=== PATIENT | female | born 1950 | race Caucasian/White ===

== ENCOUNTER 2017-03-29 14:40 | Outpatient (CLI) | payer MEDICARE, BC | END 2017-03-29 14:41 | disposition home or self-care (01) | LOC: BICRAD 14:40 | PROVIDERS: ATTEND Internal Medicine | DX: M25.571 Pain in right ankle and joints of right foot (principal); M19.071 Primary osteoarthritis, right ankle and foot ==

== ENCOUNTER 2017-04-05 16:40 | Observation (INO) | payer MEDICARE, BC ==
[~2017-04-05 16:40] MED LIST: Iopamidol 370 76% 50 ML VIAL FS ONE
[2017-04-05 17:08] LABS: #Eosinphils 0.1 thou/uL (0.0-0.7); #Lymphocytes 0.8 thou/uL (1.20-3.40); #Monocytes 0.4 thou/uL (0.11-0.59); #Neutrophils 4.6 thou/uL (1.40-6.50); %Eosinophils 1.5 % (0.0-10.0); %Lymphocytes 14.1 % (21.0-51.0); %Monocytes 7.3 % (0.0-10.0); %Neutrophils 77.1 % (42.0-75.0); Hemoglobin 13.9 g/dL (12.0-16.0); Mean Corpuscular HGB CONC 31.4 g/dL (32.0-36.0); Mean Corpuscular Hemoglobin 31.5 pg (27.0-31.0); Mean Platelet Volume 7.6 fL (7.4-10.4); Platelet Count 270 thou/uL (130-400); RBC Distribution Width 11.3 % (11.5-14.5); White Blood Cell (WBC) Count 5.9 thou/uL (4.8-10.8)
[2017-04-05 17:29] LABS: Troponin I 0.013 ng/mL (< 0.028)
[2017-04-05 17:39] LABS: ALT (SGPT) 29 U/L (8-55); AST (SGOT) 25 U/L (5-34); Albumin 4.2 g/dL (3.4-4.8); Alkaline Phosphatase 83 U/L (40-150); Anion Gap 14 mmol/L (10-20); BUN (Urea Nitrogen) 10 mg/dL (9.8-20.1); Bilirubin, Total 0.6 mg/dL (0.2-1.2); CK (CPK) 57 U/L (29-168); Calc. Creatinine Clearance 0 mL/min (70-130); Calcium 9.3 mg/dL (7.8-10.44); Carbon Dioxide 23 mmol/L (23-31); Chloride 103 mmol/L (98-107); Estimated GFR-MDRD 77; Globulin 2.9 g/dL (2.4-3.5); Glucose 132 mg/dL (80-115); Lipase 14 U/L (8-78); Potassium 3.7 mmol/L (3.5-5.1); Protein, Total 7.1 g/dL (6.0-8.3); Sodium 136 mmol/L (136-145)
--- NOTE | 2017-04-05 18:28 | RAD ---
PORTABLE AP CHEST X-RAY 04/05/17 HISTORY: Dyspnea. Persistent chest pain. COMPARISON: None available. FINDINGS: The cardiac silhouette and pulmonary vasculature are within normal limits. Mild increased linear dens ities are seen at the left lung base probably related to atelectasis. The lungs are otherwise clear. Degenerative changes are noted in the spine. IMPRESSION: Linear densities left lung base most likely related to atelectasis. However, if the patient has clini wendy signs or symptoms of pneumonia/pneumonitis, a followup chest x-ray is recommended. POS: [facility]
[2017-04-05] MEDS ORDERED: Nitroglycerin 0.4 MG TAB (25 Tab Bottle) ONE (20:17)
[2017-04-05] MEDS ORDERED: Acetaminophen 500 MG TAB ONE (20:26)
--- NOTE | 2017-04-05 20:46 | CT ---
CT ANGIOGRAM THORAX WITH IV CONTRAST AND 3D RECONSTRUCTIONS 04/05/17 HISTORY: Dyspnea and chest pain. Patient states left sided chest pain fills like a boulder on chest. Dry coug h. COMPARISON: None available. FINDINGS: No filling defects are seen in the pulmonary arteries to suggest a pulmonary embolus. The thoracic ao rta is normal in caliber without evidence of an aortic dissection. Minimal vascular calcifications ar e seen in the thoracic aorta. There is a punctate nodular density in the region of the lingula which probably represents a tiny calcified granuloma. No additional discrete pulmonary nodule or mass is se en in the lungs bilaterally. There is dependent atelectasis bilaterally. No pleural effusion is seen. Mild degenerative changes are seen in the spine. There are a few subcentimeter hypodense lesion within each lobe of the liver which are stable from pr ior CT abdomen in 2013. A larger hypodense lesion within the right hepatic lobe is present, but this is smaller in size compared to the study in 2013. The findings are probably related to hepatic cysts. There are postsurgical changes likely related to prior hernia repair/fundoplication procedure. There is no lymphadenopathy seen. IMPRESSION: 1. No CT evidence of a pulmonary embolus. 2. Incidental findings within the upper abdomen as described above which are unchanged from the study in 2013. POS: [facility]
[2017-04-05 21:27] LABS: Troponin I Less than 0.010 ng/mL (< 0.028)
[2017-04-05 22:27] VITALS: BMI 30.9
[2017-04-05 23:28] LABS: Bilirubin Negative (Negative); Blood, Urine Negative (Negative); Clarity CLEAR (Clear); Glucose, Urine (Dipstick) Negative (Negative); Leukocyte Negative (Negative); Nitrite Negative (Negative); Protein, Urine (Dipstick) Negative (Neg-Trace); Urobilinogen 0.2 mg/dL (0.2-1.0); pH, Urine 6.5 (5.0-9.0)
[2017-04-05 23:30] LABS: Bacteria/HPF Rare-Few HPF (None Seen); Hyaline Casts/LPF 0-3 HYALINE CAST LPF (0-3 Hyaline); RBC/HPF 0-3 HPF (0-3); Specific Gravity, Urine 1.059 (1.002-1.036); Squamous Epithelial 0-3 HPF (0-3); WBC/HPF 0-3 HPF (0-3)
[2017-04-06 00:18] LABS: Troponin I Less than 0.010 ng/mL (< 0.028)
[2017-04-06] MEDS ORDERED: hydrALAZINE 20 MG/ML VIAL SLOW IVP PRN (01:11)
[2017-04-06] MEDS ORDERED: HYDROcodone/Acetaminophen 5/325 mg Tablet PO PRN (01:11)
[2017-04-06] MEDS ORDERED: Temazepam 15 MG CAP PO PRN (01:11)
[2017-04-06] MEDS ORDERED: Acetaminophen 325 MG TAB PO PRN (01:11)
[2017-04-06] MEDS ORDERED: Nitroglycerin 0.4 MG TAB (25 Tab Bottle) PO PRN (01:11)
[2017-04-06] MEDS ORDERED: Ondansetron HCl/PF 4 MG/2 ML Vial IVP PRN (01:11)
[2017-04-06 02:09] LABS: Troponin I 0.011 ng/mL (< 0.028)
[2017-04-06 05:49] LABS: #Lymphocytes 0.7 thou/uL (1.20-3.40); #Monocytes 0.4 thou/uL (0.11-0.59); #Neutrophils 2.4 thou/uL (1.40-6.50); %Basophils 0.5 % (0.0-1.0); %Eosinophils 1.3 % (0.0-10.0); %Lymphocytes 18.9 % (21.0-51.0); %Monocytes 10.5 % (0.0-10.0); %Neutrophils 68.8 % (42.0-75.0); Hemoglobin 12.9 g/dL (12.0-16.0); Mean Corpuscular HGB CONC 32.6 g/dL (32.0-36.0); Mean Corpuscular Hemoglobin 32.5 pg (27.0-31.0); Mean Corpuscular Volume 99.6 fl (81.0-99.0); Mean Platelet Volume 7.7 fL (7.4-10.4); Platelet Count 229 thou/uL (130-400); RBC Distribution Width 11.4 % (11.5-14.5); Red Blood Cell (RBC) Count 3.97 mill/uL (4.20-5.40); White Blood Cell (WBC) Count 3.5 thou/uL (4.8-10.8)
[2017-04-06] MEDS ORDERED: Levothyroxine Sodium 112 MCG TAB PO SCH (06:00)
[2017-04-06] MEDS ORDERED: Levothyroxine Sodium 25 MCG TAB PO SCH (06:00)
--- NOTE | 2017-04-06 06:10 | HP ---
CHIEF COMPLAINT: Chest pain. HISTORY OF PRESENT ILLNESS: This is a 67-year-old pleasant lady who was apparently in usual state of health and chest pain woke her up from sleep at 6:00 p.m. today. She reports that left-sided chest pain, which did not radiate into the arm or jaw, but it felt like a boulder. She also had some dry c ough, some slight shortness of breath, felt her shoulders tightened up. She came into the hospital f or further evaluation and treatment because she was concerned. The patient was given 325 ASA and 1 S L nitro with no relief. No exacerbating or relieving factors. PAST MEDICAL HISTORY: Significant for hypothyroidism, previous history of chest pain where Dr. Rachana davis has done a stress test, which was negative last year. PAST SURGICAL HISTORY: Significant for hernia repair, hysterectomy, oophorectomy. ALLERGIES: None. SOCIAL HISTORY: None. MEDICATIONS: Levothyroxine. FAMILY HISTORY: Negative for diabetes and hypertension. REVIEW OF SYSTEMS: Significant for chest pain, otherwise no fever, no chills, no headache, no eye pa in, no hearing loss, and no latencies. No cough, no diarrhea, dysuria, or polyuria. No memory or mo od changes. No neck pain. PHYSICAL EXAMINATION: VITAL SIGNS: Blood pressure is 121/55, pulse is 110, afebrile, breathing comfortably on room air. GENERAL: The patient is lying in bed in no apparent distress. HEENT: Atraumatic and normocephalic. Pupils are equally round, react to light. Extraocular movemen ts intact. Mucous membranes moist. NECK: Supple. No JVD. CHEST: Breath sounds heard. No rales or rhonchi. HEART: Tachycardic. No murmurs or gallops. S1, S2 normal. ABDOMEN: Soft, obese. EXTREMITIES: No cyanosis, clubbing, or edema. Distal pulses present. NEUROLOGICAL: Alert, awake, oriented. No cranial deficits. No sensorimotor deficits. LABORATORY DATA: Potassium is 3.7, creatinine is 0.7, troponin negative x2. UA is negative. Flu is negative. Chest x-ray shows left lung atelectasis. , hemoglobin is 13. EKG shows nonspecific ST-T wave changes. ASSESSMENT AND PLAN: 1. Chest pain, rule out ACS. We will put her on chest pain protocol, consult Cardiology and do the need for. 2. Tachycardic. We will do TSH. 3. Hypothyroidism. We will continue thyroid medications. Sequential compression devices for deep v enous thrombosis prophylaxis. I will work with Cardiology and further caring for the patient.
[2017-04-06 06:12] LABS: Anion Gap 12 mmol/L (10-20); BUN (Urea Nitrogen) 9 mg/dL (9.8-20.1); Calc. Creatinine Clearance 112 mL/min (70-130); Calcium 8.9 mg/dL (7.8-10.44); Carbon Dioxide 25 mmol/L (23-31); Chloride 104 mmol/L (98-107); Estimated GFR-MDRD 84; Glucose 142 mg/dL (80-115); Potassium 3.7 mmol/L (3.5-5.1); Sodium 137 mmol/L (136-145)
[2017-04-06 07:32] LABS: Troponin I Less than 0.010 ng/mL (< 0.028)
[2017-04-06] MEDS ORDERED: Docusate 100 MG CAP PO SCH (09:00)
[2017-04-06] MEDS ORDERED: Metoprolol Tartrate 25 MG TAB PO SCH (09:00)
[2017-04-06] MEDS ORDERED: Sodium Chloride 0.9% 1,000 ML IV SCH (11:30)
[2017-04-06 11:50] LABS: Lactic Acid 0.7 mmol/L (0.5-2.2)
[2017-04-06 14:32] VITALS: BP 101/59; TEMP 98.8
--- NOTE | 2017-04-06 16:00 | CON ---
DATE OF CONSULTATION: 04/06/2017 REASON FOR CONSULTATION: Chest pain. HISTORY OF PRESENT ILLNESS: Ms. Harrison is a pleasant 67-year-old woman I have seen and evaluated in the past. She recently presented with chest pain. The chest pain went over the last 18 hours. S he states it is worse with lying down and better with moving around and walking. It is dull. No oth er ameliorating, exacerbating, or precipitating factors present. She has had fever up to 102.5. PAST MEDICAL AND SURGICAL HISTORY: Tonsillectomy, basal cell carcinoma, hysterectomy, diverticulosis , previous anemia, fundoplication. ALLERGIES: None. HOME MEDICATIONS: Tirosint. REVIEW OF SYSTEMS: A 10-point review of systems is reviewed and as above, otherwise negative. PHYSICAL EXAMINATION: GENERAL: Patient is a pleasant female who is in no acute distress. The patient appears her stated a ge. VITAL SIGNS: Blood pressure 124/60, pulse 114, temperature 102.5. NEUROLOGIC: The patient is alert and oriented times 3 with no focal neurologic deficits. HEENT: Sclerae without icterus. Mouth has moist mucous membranes with normal pallor. NECK: No JVD. Carotid upstroke brisk. No bruits bilaterally. LUNGS: Clear to auscultation with unlabored respirations. BACK: No scoliosis or kyphosis. CARDIAC: Regular rate and rhythm with normal S1 and S2. No S3 or S4 noted. No significant rubs, mu rmurs, thrills, or gallops noted throughout the precordium. PMI is not displaced. There is no iman ternal heave. ABDOMEN: Soft, nontender, nondistended. No peritoneal signs present. No hepatosplenomegaly. No ab normal striae. EXTREMITIES: 2+ femoral and 2+ dorsalis pedis pulses. No cyanosis, clubbing, or edema. SKIN: No gross abnormalities. PERTINENT LABORATORY DATA AND IMAGING: Hemoglobin 12.9, creatinine 0.7, troponin negative. EKG: No rmal sinus rhythm, nonspecific ST-T wave changes. Stress test myocardial perfusion study dated 06/05 16, normal perfusion with normal LVEF. IMPRESSION: 1. Chest pain. 2. Febrile illness. RECOMMENDATIONS: Ms. Harrison's symptoms are not felt to be typical of angina. She also has associ ated fever, which goes against unstable angina. Her troponin is negative. Her EKG is nonspecific. Her stress study performed in 05/2016 was felt to be normal. At this point, would seek a noncardiac cause. Her chest pain, likely related to febrile illness. Echo with Dopplers recommended. If felt to be within normal limits, it would be okay from my standpoint to transfer to medical.
--- NOTE | 2017-04-07 10:38 | PDOC.PN ---
- Subjective Encounter Start Date: 04/06/17 (Late entry) Encounter Start Time: 11:30 Subjective: no more chest pain -: wants to leave,declines stress test - Objective MAR Reviewed: Yes Vital Signs & Weight: Weight Weight 197 lb 9.6 oz I&O: 04/06/17 04/07/17 04/08/17 06:59 06:59 06:59 Intake Total 450 Output Total 300 500 Balance 150 -500 Result Diagrams: 04/06/17 05:16 04/06/17 05:16 Additional Labs: Microbiology 04/05/17 04/05/17 04/05/17 16:57 16:57 20:53 D-Dimer 0.81 H Troponin I 0.013 Less than 0.010 TSH 3rd Generation 04/05/17 04/06/17 04/06/17 23:40 01:23 05:16 D-Dimer Troponin I Less than 0.010 0.011 TSH 3rd Generation 0.9191 04/06/17 06:50 D-Dimer Troponin I Less than 0.010 TSH 3rd Generation Radiology Reviewed by me: Yes EKG Reviewed by me: Yes Phys Exam - Physical Examination Constitutional: NAD HEENT: PERRLA, moist MMs, sclera anicteric, oral pharynx no lesions Neck: no nodes, no JVD, supple, full ROM Respiratory: no wheezing, no rales, no rhonchi, clear to auscultation bilateral Cardiovascular: RRR, no significant murmur, no rub, gallop Gastrointestinal: soft, non-tender, no distention, positive bowel sounds Musculoskeletal: no edema, pulses present Neurological: non-focal, normal sensation, moves all 4 limbs Psychiatric: normal affect, A&O x 3 Skin: no rash Dx/Plan (1) Chest pain Code(s): R07.9 - CHEST PAIN, UNSPECIFIED Status: Acute (2) Febrile illness Code(s): R50.9 - FEVER, UNSPECIFIED Status: Acute - Plan ECHO .cardiology comnsulted/ASA -: empiric levaquin. -: blood cultures.check NAAT for Viral panel -: pt counselled about the need to stay due to high fever-she is declining -: will follow * . Review of Systems - Review of Systems Constitutional: fever Respiratory: Cough. negative: Dry, Shortness of Breath, Hemoptysis, SOB with Excertion, Pleuritic Pain, Sputum, Wheezing Cardiovascular: negative: chest pain, palpitations, orthopnea, paroxysmal nocturnal dyspnea, edema, light headedness, other Gastrointestinal: negative: Nausea, Vomiting, Abdominal Pain, Diarrhea, Constipation, Melena, Hematochezia, Other Genitourinary: negative: Dysuria, Frequency, Incontinence, Hematuria, Retention , Other Musculoskeletal: negative: Neck Pain, Shoulder Pain, Arm Pain, Back Pain, Hand Pain, Leg Pain, Foot Pain, Other Neurological: negative: Weakness, Numbness, Incoordination, Change in Speech, Confusion, Seizures, Other - Medications/Allergies Allergies/Adverse Reactions: Allergies Allergy/AdvReac Type Severity Reaction Status Date / Time No Known Allergies Allergy Verified 04/05/17 22:39
--- NOTE | 2017-04-07 11:35 | DIS ---
DATE OF ADMISSION: 04/05/2017 DATE OF DISCHARGE: 04/06/2017 PRIMARY CARE PHYSICIAN: Dr. Alexa Melendez. DISCHARGE DIAGNOSES: 1. Noncardiac chest pain. 2. Febrile illness, likely respiratory virus. DISCHARGE DISPOSITION: The patient left AMA CONSULTATION IN-HOUSE: Cardiology, Dr. Bell. PROCEDURES IN-HOUSE: CT angio of the thorax, which was negative for any pulmonary embolism or pneumo mayela. Transthoracic echocardiogram reports pending at the time of patient's leaving. HISTORY OF PRESENT ILLNESS AND BRIEF HOSPITAL COURSE: Ms. Harrison was admitted overnight by Kylie Christianson for complaints of chest pain. She was given aspirin and nitroglycerin without any relief an d was admitted for further evaluation and rule out ACS. EKG was nonspecific. Cardiac enzymes were n egative. The patient was given option of a stress test, but she declined. Cardiology was consulted as Dr. Megan yanez has seen her in the past. He saw her and his recommendations were also that this is likely a noncardiac chest pain. The patient underwent a CT angio, which was negative. Echo was done, which w as pending at the time of discharge. The patient had high-grade fever in the hospital at 102.5. Her influenza swab was negative and her P CR was pending at the time of discharge. The patient was counseled and blood cultures were obtained and she was given one dose of empiric antibiotic in the form of levofloxacin. I discussed this with the patient, but she was adamant that she needs to leave and left against medical advice. I have ins tructed her to follow up with a primary care physician as soon as possible. She is instructed to fol low up with the PCP after the weekend. Most likely she has had upper respiratory viral illness and t he need treatment. Because of the patient's leaving AMA, no prescriptions were provided and she was made aware of that. She declined overnight stay to wait for the results of the blood culture or maybe even stay another hour to wait for the results of her influenza PCR. The patient signed the AMA form and left the unit .
--- NOTE | 2017-04-21 14:13 | EKG ---
Test Reason : ERS.BRB Blood Pressure : / mmHG Vent. Rate : 119 BPM Atrial Rate : 119 BPM P-R Int : 156 ms QRS Dur : 088 ms QT Int : 322 ms P-R-T Axes : 045 008 034 degrees QTc Int : 452 ms Sinus tachycardia Nonspecific ST and T wave abnormality Abnormal ECG Confirmed by JARRELL FLETCHER, CARLOS ALBERTO ([id number]), restaurant expeditor VAMSI MOSES ([id number]) on 04/21/2017 2:12:49 PM Referred By: Confirmed By:CARLOS ALBERTO VIEYRA MD
== END 2017-04-06 16:15 | disposition left against medical advice (07) ==
LOC: ERS 16:40 → 2SW 20:31
PROVIDERS: ADMIT Internal Medicine; ATTEND Internal Medicine
DX: R07.89 Other chest pain (principal); R50.9 Fever, unspecified; Z90.710 Acquired absence of both cervix and uterus; Z79.899 Other long term (current) drug therapy; Z90.89 Acquired absence of other organs; Z98.890 Other specified postprocedural states; Z85.828 Personal history of other malignant neoplasm of skin
CPT/HCPCS: 71045; 71275; 80048; 80053; 81001; 82550; 82553; 83605; 83690; 83880; 84443; 84484 ×4; 85025 ×2; 85379; 87040; 87633; 87798 ×2; 87804 ×2; 93005; 93306; 94760; 99285; G0378; 36415

== ENCOUNTER 2017-10-03 11:11 | Outpatient (CLI) | payer MEDICARE, BC | END 2017-10-03 11:12 | disposition home or self-care (01) | LOC: BICMAMMO 11:11 | PROVIDERS: ATTEND Obstetrics & Gynecology | DX: Z12.31 Encounter for screening mammogram for malignant neoplasm of breast (principal); Z85.89 Personal history of malignant neoplasm of other organs and systems | CPT/HCPCS: 77063; 77067 ==

== ENCOUNTER 2018-07-23 15:44 | Outpatient (CLI) | payer MEDICARE, BC ==
--- NOTE | 2018-07-23 17:22 | MRI ---
MRI Lower Ext Jt Rt WO Con History: [Pain. M 70.50 pes anserine bursitis] Comparison: None. Findings: Medial meniscus: Undersurface flap tear body and posterior horn medial meniscus with medial gutter extrusion. Lateral meniscus:. Mild fraying lateral meniscal body without displaced tear. No extrusion. ACL, PCL, MCL and LCL are all intact. Extensor mechanism: The quadriceps tendon, patella, and patellar tendon are intact. Cartilage: Patellofemoral compartment: High grade chondral fissuring of the inferior margin of the lateral betancourt lar facet with early subcortical reactive marrow changes. Symmetry of the trochlea. High-grade fissuring of the medial trochlea. Medial compartment: Cartilage delamination, high-grade, of the medial femoral condyle and medial tibi al plateau. Lateral compartment: There is a focal 3 x 5 mm 50 % chondral defect posterior weightbearing surface l ateral femoral condyle. Soft tissues: Moderate joint effusion. Large ganglion pseudocysts adjacent to the posterior horn body junction of the medial meniscus containing ossific debris and measures 1.5 cm in transverse by 1.8 cm in craniocaudad dimension. Small pes anserine bursa effusion. [id number]-[id number] tendinosis of the submembranous. Muscles: Muscle signal and bulk is normal. Bones: Moderate tricompartmental osteophyte formation. No insufficiency fracture. Impression: 1. Undersurface flap tear of the body and posterior horn medial meniscus with gutter extrusion and hinojosa bsequent multifocal chondral delamination. 2. Mild fraying of the lateral meniscal body with a displaced tear and multifocal grade II chondromal acia. 3. 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 4. Mild pes anserine bursa effusion. 5. Ganglion pseudocysts as described at the posterior horn body junction medial meniscus.
== END 2018-07-23 15:45 | disposition home or self-care (01) ==
LOC: TBSIIMAG 15:44
PROVIDERS: ATTEND Orthopaedic Surgery
DX: M70.51 Other bursitis of knee, right knee (principal); S83.241A Other tear of medial meniscus, current injury, right knee, initial encounter; S83.281A Other tear of lateral meniscus, current injury, right knee, initial encounter; M94.261 Chondromalacia, right knee

== ENCOUNTER 2018-09-04 18:34 | Observation (INO) | payer MEDICARE, BC ==
[~2018-09-04 18:34] MED LIST changes: +ISOVUE-370 76%-LOCM 1 ML ONE; -Iopamidol 370 76% 50 ML VIAL FS ONE
--- NOTE | 2018-09-04 18:49 | CT ---
CT Brain WO Con HISTORY: Dizziness in a patient COMPARISON: None. FINDINGS: The ventricular and cisternal system is within normal limits. There are no signs of intrace rebral hemorrhage or extra-axial fluid collections. The mastoid air cells and visualized sinuses are clear. IMPRESSION: No acute intracranial abnormalities. Findings telephoned to Dr. Palma at 1846 hours
--- NOTE | 2018-09-04 19:13 | CT ---
CTA Angio Neck W WO Con with 3-D reconstructions HISTORY: Blurred vision and aphasia COMPARISON: CT of head done earlier today FINDINGS: The lung apices are clear of infiltrates. There are subsegmental atelectatic changes. Small nonspecific jugular chain lymph nodes are noted. The thyroid gland is normal in appearance. Parotid and submandibular glands appear unremarkable. The angiographic portion of the study yielded a good examination. There is a separate origin of the l eft common carotid artery from the aortic arch. The vertebral arteries are codominant although the main contribution to the basilar artery is from the left side. On the right side the right common internal and external carotid arteries are normal in appearance. There is no significant stenosis of the left carotid system. Specifically no stenosis of the internal carotid. IMPRESSION: No evidence of stenosis of either internal carotid artery by nascent criteria. Findings telephoned to Dr. Palma at 1910 hours.
--- NOTE | 2018-09-04 19:16 | CT ---
CTA Angio Head W WO Con with 3-D reconstructions HISTORY: Blurred vision in a patient COMPARISON: CT of brain done earlier today. FINDINGS: There is good arterial opacification. The right anterior and middle cerebral arteries and t heir branches are normal in appearance. The left side is also normal in appearance. There are no signs of any aneurysm or evidence of stenosis. No intraluminal thrombus. IMPRESSION: Unremarkable CT angiography of brain. Findings telephoned to Dr. Palma at 1910 hours
[2018-09-04 19:27] LABS: #Eosinphils 0.1 thou/uL (0.0-0.7); #Lymphocytes 1.6 thou/uL (1.20-3.40); #Monocytes 0.4 thou/uL (0.11-0.59); #Neutrophils 3.4 thou/uL (1.40-6.50); %Basophils 0.7 % (0.0-1.0); %Eosinophils 1.5 % (0.0-10.0); %Lymphocytes 29.5 % (21.0-51.0); %Monocytes 7.6 % (0.0-10.0); %Neutrophils 60.7 % (42.0-75.0); Mean Corpuscular HGB CONC 32.8 g/dL (32.0-36.0); Mean Corpuscular Hemoglobin 33.1 pg (27.0-31.0); Mean Platelet Volume 7.8 fL (7.4-10.4); Platelet Count 302 thou/uL (130-400); RBC Distribution Width 11.2 % (11.5-14.5); Red Blood Cell (RBC) Count 3.92 mill/uL (4.20-5.40); White Blood Cell (WBC) Count 5.5 thou/uL (4.8-10.8)
[2018-09-04 19:34] LABS: PTT 30.8 SEC (22.9-36.1)
[2018-09-04 19:41] LABS: ALT (SGPT) 19 U/L (8-55); AST (SGOT) 20 U/L (5-34); Albumin 3.9 g/dL (3.4-4.8); Alkaline Phosphatase 67 U/L (40-150); Anion Gap 14 mmol/L (10-20); BUN (Urea Nitrogen) 7 mg/dL (9.8-20.1); Bilirubin, Total 0.3 mg/dL (0.2-1.2); CK (CPK) 64 U/L (29-168); Calc. Creatinine Clearance 0 mL/min (70-130); Calcium 9.2 mg/dL (7.8-10.44); Carbon Dioxide 22 mmol/L (23-31); Chloride 103 mmol/L (98-107); Estimated GFR-MDRD 75; Globulin 2.7 g/dL (2.4-3.5); Glucose 230 mg/dL (80-115); Potassium 3.3 mmol/L (3.5-5.1); Protein, Total 6.6 g/dL (6.0-8.3); Sodium 136 mmol/L (136-145)
--- NOTE | 2018-09-04 20:09 | RAD ---
XR Chest 1 View Portable HISTORY: Double vision expressive aphasia COMPARISON: 04/05/2017 study FINDINGS: Heart size and mediastinum are within normal limits. The lungs are clear of infiltrates. No significant bony findings. IMPRESSION: No active intrathoracic disease.
[2018-09-04] MEDS ORDERED: Aspirin Chewable 81 MG TAB ONE (20:13)
[2018-09-04] MEDS ORDERED: Aspirin 325 MG TAB ONE (20:15)
--- NOTE | 2018-09-05 13:33 | MRI ---
MRI BRAIN WITHOUT IV CONTRAST: HISTORY: CVA versus TIA. Dizziness. FINDINGS: There are several very tiny foci of restricted diffusion in the cortical and subcortical regions of t he left posterior temporal and parietal lobes, evidence for tiny acute infarct changes. No evidence for a transcortical infarct. No focal mass or midline shift. No acute hemorrhage. Expected flow vo ids are present. IMPRESSION: Several tiny punctate foci of acute infarctions in the left posterior temporal and parietal cortical and subcortical regions. No transcortical infarct. No mass, bleed, or other acute process. POS: [facility]
[2018-09-05 14:01] LABS: Troponin I Less than 0.010 ng/mL (< 0.028)
[2018-09-05 14:22] LABS: Free T4 (Free Thyroxine) 0.99 ng/dL (0.70-1.48); Thyroid Stimulating Hormone 1.984 uIU/mL (0.35-4.94)
[2018-09-05 14:33] LABS: Cardiac Risk 3.1 (Less than 4.5)
[2018-09-05 15:45] VITALS: BP 140/75; TEMP 98.2
[2018-09-05 16:40] LABS: Troponin I Less than 0.010 ng/mL (< 0.028)
--- NOTE | 2018-09-05 20:30 | HP ---
PRIMARY CARE PHYSICIAN: Alexa Melendez MD CODE STATUS: Full code. TIME OF EVALUATION: 8:47 p.m. CHIEF COMPLAINT: Left-sided facial numbness and "I was unable to find the right words." HISTORY OF PRESENT ILLNESS: This is a 68-year-old female patient with past medical history of hypothyroidism, who came to the hospital after having an episode of being unable to find her words and also having left-sided facial numbness with no clear triggers and no alleviating factors. The patient was having some dinner. During the dinner, the symptoms started. No other symptoms were associated. The patient does not have any other significant weakness or dizziness reported or during the neuro examination. The symptoms were mild. The symptoms are improved with sudden onset and slowly getting better. REVIEW OF SYSTEMS: CONSTITUTIONAL: No fever, chills, or generalized weakness. RESPIRATORY: No cough, sputum production, or shortness of breath. CARDIOVASCULAR: No chest pain or palpitation. GASTROINTESTINAL: No nausea, vomiting, diarrhea, or abdominal pain. TIE TAPE MACHINE OPERATOR: The patient has left-sided numbness and also slurred speech. No dizziness , headache, or feeling lightheaded. GENITOURINARY: No burning on urination. EXTREMITIES: No leg swelling. All other systems were reviewed and negative except for the findings mentioned above. PAST MEDICAL HISTORY: Positive for hypothyroidism. PAST SURGICAL HISTORY: Hernia repair, hysterectomy, oophorectomy. PAST PSYCHIATRIC HISTORY: No previous psych history. FAMILY HISTORY: Reviewed and non contributory to current presentation. SOCIAL HISTORY: The patient drinks socially. No drug use. No smoking history. KNOWN ALLERGIES: No known drug allergies reported. MEDICATIONS: Levothyroxine. PHYSICAL EXAMINATION: VITAL SIGNS: On presentation, heart rate 97, respiratory rate was 18, temperature 98.1. Pain was 10/10. Oxygen saturation was 96% on room air. GENERAL APPEARANCE: The patient was alert, oriented, not in acute distress. HEAD AND EYES: Normal conjunctivae. Moist oral mucosa. Anicteric. No JVD. RESPIRATORY: Bilateral air entry. No rales. No wheezes. Symmetric expansion. CARDIOVASCULAR: Normal heart rate, regular rhythm. No murmurs. No gallop. No edema. ABDOMEN: Soft. Normal bowel sounds. MUSCULOSKELETAL: Baseline range of motion and strength. No tenderness. SKIN: Warm and intact. No pallor. No rash. No redness. Capillary refill seems to be intact. NEUROLOGIC: No evidence of any new focal weakness. Cranial nerves seems to be intact. Speech seems to be back to normal. PSYCHIATRIC: The patient is in good mood. No anxiety. Optimal judgment. IMAGING STUDIES: Radiology was done. The patient had a CT head that was negative. CT angio of the neck was negative. Chest x-ray, no active intrathoracic disease. LABORATORY DATA: Labs were reviewed. The patient has white count 5.5, hemoglobin 13, MCV 101, platelet count 302. Coagulation; PT 13, INR cancelled, PTT 30.8. D-dimer 0.64. Chemistry; sodium 136, potassium 3.3, chloride 103, carbon dioxide 22, anion gap 14, BUN 7, creatinine 0.77, GFR 75, glucose 230, POC glucose 253, calcium 9.2, total bilirubin 0.3. LFTs were negative. Troponin was negative. Serum total protein 6.6 and triglyceride this morning was 189. ASSESSMENT AND PLAN: This dictation is from September 04, 2018, and 8:47 p.m. was the time of evaluation. The dictation has been done after hours due to [employer] issues. The patient will be placed in the hospital for the following medical problems: 1. Aphasia. Rule out stroke. The patient will be placed in the stroke unit. We will do stroke protocol. We will follow recommendations from Neurology. We will follow results. 2. Hypothyroidism. We will continue hormone replacement. 3. Hypokalemia. Potassium is 3.3. We will replace electrolytes as needed. 4. Hyperglycemia. The patient denies any history of diabetes. We will monitor. The patient might need evaluation for diabetes. This hyperglycemia could be related to acute physical distress or stroke. 5. Deep venous thrombosis prophylaxis. Job ID: [id number] [facility]
--- NOTE | 2018-09-05 23:40 | CON ---
DATE OF CONSULTATION: 09/05/2018 CONSULTING PHYSICIAN: Hospitalist Service. IMPRESSION: Transient stroke symptoms probably secondary to a small thromboembolic event. PLAN: 1. Aspirin 81 mg per day. 2. Low-dose statin. 3. Follow up with primary care. HISTORY OF PRESENT ILLNESS: Ms. Harrison is a 68-year-old woman with no significant past history other than hypothyroidism. She was talking to her friend when she all of a sudden had some distortion in her vision and found that she was having some word-finding difficulty. This lasted just a few minutes. She came to the hospital for evaluation. Her CT angiogram was unremarkable for any major vessel occlusions. Subsequent MRI reveals some punctate areas of ischemia in the left MCA territory. she has had echocardiograms done on a yearly basis and they have always been normal. She was not on any aspirin or statin prior to the event. PAST MEDICAL HISTORY: Hypothyroidism. ALLERGIES: NONE REPORTED. SOCIAL HISTORY: No tobacco use. FAMILY HISTORY: Noncontributory. REVIEW OF SYSTEMS: A 10-system review of systems is otherwise negative. PHYSICAL EXAMINATION: GENERAL: She is a somewhat overweight middle-aged woman, in no acute distress. VITAL SIGNS: Have been stable. She is afebrile. HEENT: Pupils are equal and reactive. Conjunctivae are clear. Oropharynx is clear. NECK: Supple. EXTREMITIES: No cyanosis. NEUROLOGIC: She is alert and appropriate. Her speech is fluent and clear. Cranial nerves are intact. Motor exam shows equal strength. There are no sensory deficits. There is no fix or drift. She can walk independently. SUMMARY: Middle-aged woman with some transient neurologic deficits in the left MCA territory. She does not have any major vessel issues and will unlikely have anything found on her echocardiogram based on her history. She appears stable for discharge. Job ID: [id number]
--- NOTE | 2018-09-07 09:35 | EKG ---
Test Reason : ER Blood Pressure : / mmHG Vent. Rate : 079 BPM Atrial Rate : 079 BPM P-R Int : 166 ms QRS Dur : 086 ms QT Int : 376 ms P-R-T Axes : 050 009 018 degrees QTc Int : 431 ms Sinus rhythm with marked sinus arrhythmia Otherwise normal ECG Confirmed by SHERIDAN WINKLER D.O. ([id number]), newspaper photo editor VAMSI MOSES ([id number]) on 09/07/2018 9:35:17 AM Referred By: Confirmed By:SHERIDAN WINKLER D.O.
== END 2018-09-05 17:39 | disposition home or self-care (01) ==
LOC: ERS 18:34 → 2SE 23:00 → UNDOADMOB 09-05 10:20
PROVIDERS: ADMIT Hospitalist; ATTEND Hospitalist
DX: R47.01 Aphasia (principal); E03.9 Hypothyroidism, unspecified; E87.6 Hypokalemia; R73.9 Hyperglycemia, unspecified; Z98.890 Other specified postprocedural states; Z90.710 Acquired absence of both cervix and uterus; Z79.82 Long term (current) use of aspirin; Z79.899 Other long term (current) drug therapy
CPT/HCPCS: 70450; 70496; 70498; 70551; 71045; 80048; 80053; 80061; 82550; 82962; 84439; 84443; 84481; 84484 ×3; 85025 ×2; 85379; 85610; 85730; 93005; 93306; 97139 ×3; 99285; G0378 ×2; 36415; 36416; 93010

== ENCOUNTER 2018-09-06 07:00 | Day surgery (SDC) | payer MEDICARE, BC ==
[2018-09-06] MEDS ORDERED: PROPOFOL 20 ML ONE (07:12)
[2018-09-06] MEDS ORDERED: Fentanyl 100 MCG/2 ML VIAL ONE ×2 (08:35→08:43)
[2018-09-06] MEDS ORDERED: Midazolam HCl 2 mg/2 ml Vial ONE (08:43)
--- NOTE | 2018-09-06 15:12 | OP ---
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 PROCEDURE PERFORMED: Arthroscopic partial medial meniscectomy. ANESTHESIA: General. ESTIMATED BLOOD LOSS: Minimal. SPECIMENS: None. DRAINS: None. COMPLICATIONS: None. FINDINGS OF SURGERY: Some grade 3 chondromalacia on the medial femoral condyle, some grade 4 chondromalacia of the patellofemoral joint, intact articular cartilage of lateral compartment, tear of lateral meniscus somewhat degenerative, and a large parrot-beak type tear of the posterior horn of the medial meniscus. DESCRIPTION OF PROCEDURE: Scope was placed in the lateral portal. Probe was placed in the medial portal. I did debride unstable articular cartilage flap tears. The probe then found a large posterior medial meniscus tear, which was debrided using basket forceps and smoothed using a 4.0 full-radius resector. The meniscus was then probed and found to be stable. Lateral meniscectomy was performed with the shaver. I probed the lateral meniscus, it was stable. The ACL was intact. The knee was then irrigated and drained, and sterile dressings were applied. Job ID: [id number]
[2018-09-06] MEDS ORDERED: Lidocaine 2% w/Epinephrine 1:200K 20 ML VIAL ONE (16:06)
[2018-09-06] MEDS ORDERED: Bupivacaine HCl 0.5%/Epinephrine 1:200,000/PF 30 ml Vial ONE (16:06)
[2018-09-06] MEDS ORDERED: Lidocaine 1% PF 5 ML VIAL ONE (16:16)
[2018-09-06] MEDS ORDERED: PROPOFOL 200 MG/20 ML VIAL ONE (16:16)
[2018-09-06] MEDS ORDERED: Dexamethasone 20 MG/5 ML VIAL ONE (16:16)
[2018-09-06] MEDS ORDERED: Ondansetron PF 4 MG/2 ML Vial ONE (16:16)
== END 2018-09-06 12:42 | disposition home or self-care (01) ==
LOC: SDC 07:00
PROVIDERS: ATTEND Orthopaedic Surgery
PROC: 0SBC4ZZ Excision of Right Knee Joint, Percutaneous Endoscopic Approach (ICD-10-PCS; principal; 2018-09-06)
DX: S83.241A Other tear of medial meniscus, current injury, right knee, initial encounter (principal); S83.281A Other tear of lateral meniscus, current injury, right knee, initial encounter; M94.261 Chondromalacia, right knee; D64.9 Anemia, unspecified; E03.9 Hypothyroidism, unspecified; M70.50 Other bursitis of knee, unspecified knee; Z79.899 Other long term (current) drug therapy
CPT/HCPCS: 29881; 97116; 97139; C1713; J0670; J0690; J1100; J2001; J2250; J2405; J2704; J3010

== ENCOUNTER 2018-10-30 10:19 | Outpatient (CLI) | payer MEDICARE, BC ==
--- NOTE | 2018-10-30 11:04 | MMO ---
Right Breast MAMMO Unilat Diag DDI RT+REMI. CLINICAL HISTORY: Patient is 68 years old and is seen for diagnostic exam. The patient has no family history of breast cancer. The patient has no personal history of cancer. VIEWS: The views performed were: right craniocaudal spot compression with tomosynthesis; right mediolateral oblique spot compression with tomosynthesis; and right mediolateral with tomosynthesis. FILMS COMPARED: The present examination has been compared to prior imaging studies performed at [facility] on 10/21/2018, and at [facility] [place] [facility] on 09/30/2015, 10/02/2016 and 10/03/2017. MAMMOGRAM FINDINGS: The breast is heterogeneously dense, which could obscure a lesion on mammography. The area of concern in the right breast on recent screening study has the appearance of normal tissue on additional mammographic views. There are no suspicious masses, suspicious calcifications, or new areas of architectural distortion. IMPRESSION: THERE IS NO MAMMOGRAPHIC EVIDENCE OF MALIGNANCY. A ROUTINE FOLLOW-UP MAMMOGRAM IN 1 YEAR IS RECOMMENDED. THE RESULTS OF THIS EXAM WERE SENT TO THE PATIENT. ACR BI-RADS Category 2 - Benign finding MAMMOGRAPHY NOTE: 1. A negative mammogram report should not delay a biopsy if a dominant of clinically suspicious mass is present. 2. Approximately 10% to 15% of breast cancers are not detected by mammography. 3. Adenosis and dense breasts may obscure an underlying neoplasm. Reported by: NELSY CARDENAS MD Electonically Signed: [id number]
== END 2018-10-30 10:20 | disposition home or self-care (01) ==
LOC: BICMAMMO 10:19
PROVIDERS: ATTEND Obstetrics & Gynecology
DX: N63.10 Unspecified lump in the right breast, unspecified quadrant (principal)
CPT/HCPCS: 77065; G0279

== ENCOUNTER 2020-05-28 13:56 | Outpatient (CLI) | payer MEDICARE, BC | END 2020-05-28 13:57 | disposition home or self-care (01) | LOC: TBSIIMAG 13:56 | PROVIDERS: ATTEND Orthopaedic Surgery | DX: S83.207A Unspecified tear of unspecified meniscus, current injury, left knee, initial encounter (principal); S83.242A Other tear of medial meniscus, current injury, left knee, initial encounter ==

== ENCOUNTER 2020-06-25 13:20 | Outpatient (CLI) | payer MEDICARE, BC | END 2020-06-25 13:21 | disposition home or self-care (01) | LOC: BICCT 13:20 | PROVIDERS: ATTEND Internal Medicine | DX: R51.9 Headache, unspecified (principal) | CPT/HCPCS: 70450 ==

== ENCOUNTER 2020-06-28 14:42 | Outpatient (CLI) | payer MEDICARE, BC ==
[2020-06-28 16:04] LABS: Anion Gap 13 mmol/L (10-20); BUN (Urea Nitrogen) 9 mg/dL (9.8-20.1); Calc. Creatinine Clearance 0 mL/min (70-130); Calcium 9.2 mg/dL (7.8-10.44); Carbon Dioxide 28 mmol/L (23-31); Chloride 104 mmol/L (98-107); Glucose 143 mg/dL (80-115); Potassium 4.1 mmol/L (3.5-5.1); Sodium 141 mmol/L (136-145)
[2020-06-28 16:10] LABS: #Eosinphils 0.2 10x3/uL (0.0-0.5); #Monocytes 0.6 10x3/uL (0.0-1.1); #Neutrophils 5.6 10x3/uL (1.5-8.4); %Basophils 0.5 % (0.0-2.0); %Eosinophils 2.1 % (0.0-6.0); %Lymphocytes 26.1 % (18.0-47.0); %Monocytes 6.9 % (0.0-10.0); %Neutrophils 64.2 % (40.0-75.0); Hemoglobin 13.4 g/dL (12.0-15.5); Mean Corpuscular HGB CONC 32.2 g/dL (32.0-36.0); Mean Corpuscular Hemoglobin 31.6 pg (27.0-33.0); Mean Corpuscular Volume 98.1 fl (81.6-98.3); Mean Platelet Volume 10.4 fl (7.4-10.4); Platelet Count 336 10x3/uL (150-450); RBC Distribution Width 12.5 % (11.5-14.5); Red Blood Cell (RBC) Count 4.24 10x6/uL (3.90-5.03); White Blood Cell (WBC) Count 8.8 10x3/uL (3.5-10.5)
[2020-06-29 02:11] LABS: SARS-CoV-2 PCR by NAA Not Detected (NotDetected)
== END 2020-06-28 14:43 | disposition home or self-care (01) ==
LOC: LABBT 14:42
PROVIDERS: ATTEND Orthopaedic Surgery
DX: Z01.812 Encounter for preprocedural laboratory examination (principal); Z20.822 Contact with and (suspected) exposure to COVID-19
CPT/HCPCS: 80048; 85025; U0003; U0005; 87635

== ENCOUNTER 2020-07-01 06:00 | Day surgery (SDC) | payer MEDICARE, BC ==
[2020-06-30 11:03] VITALS: BMI 29.7
[2020-07-01] MEDS ORDERED: Fentanyl 100 MCG/2 ML VIAL ONE (06:30)
[2020-07-01] MEDS ORDERED: Ondansetron PF 4 MG/2 ML Vial ONE (06:47)
[2020-07-01] MEDS ORDERED: Bupivacaine HCl 0.5%/Epinephrine 1:200,000/PF 30 ml Vial ONE (06:47)
[2020-07-01] MEDS ORDERED: PROPOFOL 200 MG/20 ML VIAL ONE (06:47)
[2020-07-01] MEDS ORDERED: Rocuronium Bromide 10 MG/ML (10ML VIAL) ONE (06:47)
[2020-07-01] MEDS ORDERED: Lidocaine 1% PF 5 ML VIAL ONE (06:47)
[2020-07-01] MEDS ORDERED: PHENYLEPHRINE-NS 100 MCG/ML 10 ML SYRINGE ONE (06:47)
[2020-07-01] MEDS ORDERED: PROPOFOL 20 ML ONE (06:47)
[2020-07-01] MEDS ORDERED: Dexamethasone 20 MG/5 ML VIAL ONE (06:47)
[2020-07-01] MEDS ORDERED: EPINEPHrine 1 MG/ML AMP ONE (06:47)
[2020-07-01] MEDS ORDERED: Lidocaine 2% w/Epinephrine 1:200K 20 ML VIAL ONE (06:47)
[2020-07-01] MEDS ORDERED: SUGAMMADEX SODIUM 200 MG/2 ML VIAL ONE (07:55)
== END 2020-07-01 10:52 | disposition home or self-care (01) ==
LOC: SDC 06:00
PROVIDERS: ATTEND Orthopaedic Surgery
PROC: 0SBD4ZZ Excision of Left Knee Joint, Percutaneous Endoscopic Approach (ICD-10-PCS; principal; 2020-07-01)
DX: M23.222 Derangement of posterior horn of medial meniscus due to old tear or injury, left knee (principal); M23.42 Loose body in knee, left knee; E03.9 Hypothyroidism, unspecified; D64.9 Anemia, unspecified; Z79.899 Other long term (current) drug therapy; Z91.048 Other nonmedicinal substance allergy status
CPT/HCPCS: J0171; J0690; J1100; J2405; J2704; J3010

== ENCOUNTER 2020-11-10 15:08 | Outpatient (CLI) | payer MEDICARE, BC | END 2020-11-10 15:09 | disposition home or self-care (01) | LOC: BICMAMMO 15:08 | PROVIDERS: ATTEND Internal Medicine | DX: Z12.31 Encounter for screening mammogram for malignant neoplasm of breast (principal); Z85.828 Personal history of other malignant neoplasm of skin | CPT/HCPCS: 77063; 77067 ==

== ENCOUNTER 2021-11-01 08:41 | Outpatient (CLI) | payer MEDICARE, BC | END 2021-11-01 08:42 | disposition home or self-care (01) | LOC: ULT 08:41 | PROVIDERS: ATTEND Internal Medicine | DX: E04.1 Nontoxic single thyroid nodule (principal) | CPT/HCPCS: 76536 ==

== ENCOUNTER 2021-11-11 10:44 | Outpatient (CLI) | payer MEDICARE, BC | END 2021-11-11 10:45 | disposition home or self-care (01) | LOC: BICMAMMO 10:44 | PROVIDERS: ATTEND Internal Medicine | DX: Z12.31 Encounter for screening mammogram for malignant neoplasm of breast (principal); Z85.828 Personal history of other malignant neoplasm of skin | CPT/HCPCS: 77063; 77067 ==

== ENCOUNTER 2022-10-27 13:50 | Outpatient (CLI) | payer MEDICARE, BC | END 2022-10-27 13:51 | disposition home or self-care (01) | LOC: BICCT 13:50 | PROVIDERS: ATTEND Internal Medicine | DX: R51.9 Headache, unspecified (principal); Z86.73 Personal history of transient ischemic attack (TIA), and cerebral infarction without residual deficits | CPT/HCPCS: 70450 ==

== ENCOUNTER 2022-11-20 18:23 | Emergency (ER) | payer MEDICARE, BC ==
[2022-11-20 18:46] LABS: #Basophils 0.1 thou/uL (0.0-0.2); #Eosinphils 0.1 thou/uL (0.0-0.7); #Monocytes 0.6 thou/uL (0.11-0.59); #Neutrophils 3.3 thou/uL (1.40-6.50); %Basophils 0.7 % (0.0-1.0); %Eosinophils 1.8 % (0.0-10.0); %Lymphocytes 41.7 % (21.0-51.0); %Monocytes 8.7 % (0.0-10.0); Hematocrit 41.6 % (36.0-47.0); Hemoglobin 13.7 g/dL (12.0-16.0); Mean Corpuscular HGB CONC 32.9 g/dL (32.0-36.0); Mean Corpuscular Hemoglobin 31.9 pg (27.0-31.0); Mean Corpuscular Volume 96.7 fl (78.0-98.0); Mean Platelet Volume 10.1 fL (7.4-10.4); Platelet Count 310 10x3/uL (130-400); RBC Distribution Width 12.7 % (11.5-14.5); White Blood Cell (WBC) Count 7.1 10x3/uL (4.8-10.8)
[2022-11-20] MEDS ORDERED: Nitroglycerin 0.4 MG TAB 1 EACH ONE (18:53)
[2022-11-20] MEDS ORDERED: Aspirin Chewable 81 MG TAB ONE (18:53)
[2022-11-20 19:08] LABS: Digoxin Less than 0.15 ng/mL (0.8-2.0)
[2022-11-20 19:17] LABS: ALT (SGPT) 27 U/L (8-55); AST (SGOT) 26 U/L (5-34); Albumin 4.4 g/dL (3.4-4.8); Alkaline Phosphatase 86 U/L (40-110); Anion Gap 14 mmol/L (10-20); BUN (Urea Nitrogen) 12 mg/dL (9.8-20.1); Bilirubin, Total 0.3 mg/dL (0.2-1.2); Calc. Creatinine Clearance 0 mL/min (70-130); Calcium 9.6 mg/dL (7.8-10.44); Carbon Dioxide 23 mmol/L (23-31); Chloride 106 mmol/L (98-107); Estimated GFR 75; Globulin 2.9 g/dL (2.4-3.5); Glucose 178 mg/dL (83-110); Lipase 32 U/L (8-78); Protein, Total 7.3 g/dL (5.8-8.1); Sodium 139 mmol/L (136-145)
[2022-11-20 19:21] LABS: Troponin I Less than 0.010 ng/mL (< 0.028)
[2022-11-21] MEDS ORDERED: Aspirin Chewable 81 MG TAB PO SCH (09:00)
== END 2022-11-20 22:46 | disposition left against medical advice (07) ==
LOC: ERS 18:23
DX: R07.9 Chest pain, unspecified (principal); E03.9 Hypothyroidism, unspecified
CPT/HCPCS: 71045; 80053; 80162; 83690; 83880; 84484; 85025; 93005

== ENCOUNTER 2022-12-24 15:32 | Emergency (ER) | payer MEDICARE, BC ==
[~2022-12-24 15:32] MED LIST changes: -ISOVUE-370 76%-LOCM 1 ML ONE; +Iopamidol-370 76% 500 ML MDV (1 ML CHARGE) ONE
[2022-12-24 16:58] LABS: ALT (SGPT) 21 U/L (8-55); AST (SGOT) 41 U/L (5-34); Albumin 3.7 g/dL (3.4-4.8); Alkaline Phosphatase 86 U/L (40-110); Anion Gap 16 mmol/L (10-20); BUN (Urea Nitrogen) 11 mg/dL (9.8-20.1); Bilirubin, Total 0.2 mg/dL (0.2-1.2); Calc. Creatinine Clearance 0 mL/min (70-130); Calcium 9.1 mg/dL (7.8-10.44); Carbon Dioxide 23 mmol/L (23-31); Chloride 105 mmol/L (98-107); Estimated GFR 84; Glucose 170 mg/dL (83-110); Lipase 26 U/L (8-78); Potassium 4.5 mmol/L (3.5-5.1); Protein, Total 6.7 g/dL (5.8-8.1); Sodium 139 mmol/L (136-145)
[2022-12-24 17:00] LABS: Troponin I Less than 0.010 ng/mL (< 0.028)
[2022-12-24 18:41] LABS: Troponin I Less than 0.010 ng/mL (< 0.028)
== END 2022-12-24 19:13 | disposition home or self-care (01) ==
LOC: ERS 15:32
DX: R07.89 Other chest pain (principal)
CPT/HCPCS: 36415; 71045; 71275; 80053; 83690; 83880; 84484; 85379; 93005; Q9967

== ENCOUNTER 2023-01-01 06:07 | Day surgery (SDC) | payer MEDICARE, BC ==
[2022-12-29 14:07] VITALS: BMI 28.1
[2023-01-01] MEDS ORDERED: Heparin 10,000 UNITS/ 10 ML VIAL ONE (06:32)
[2023-01-01] MEDS ORDERED: Adenosine 6 MG/2 ML VIAL ONE (06:32)
[2023-01-01] MEDS ORDERED: Nitroglycerin 50 MG/250 ML BOT 250 ML ONE (06:33)
[2023-01-01] MEDS ORDERED: Lidocaine 1% (PF) 30 ML VIAL ONE (06:33)
[2023-01-01 07:02] LABS: #Eosinphils 0.1 thou/uL (0.0-0.7); #Monocytes 0.5 thou/uL (0.11-0.59); #Neutrophils 2.5 thou/uL (1.40-6.50); %Basophils 0.6 % (0.0-1.0); %Eosinophils 2.4 % (0.0-10.0); %Lymphocytes 37.3 % (21.0-51.0); %Monocytes 9.6 % (0.0-10.0); %Neutrophils 49.9 % (42.0-75.0); Hematocrit 36.2 % (36.0-47.0); Hemoglobin 11.8 g/dL (12.0-16.0); Mean Corpuscular HGB CONC 32.6 g/dL (32.0-36.0); Mean Corpuscular Hemoglobin 31.6 pg (27.0-31.0); Mean Corpuscular Volume 96.8 fl (78.0-98.0); Platelet Count 287 10x3/uL (130-400); RBC Distribution Width 12.6 % (11.5-14.5); Red Blood Cell (RBC) Count 3.74 mill/uL (4.20-5.40)
[2023-01-01] MEDS ORDERED: Midazolam HCl 2 mg/2 ml Vial ONE (07:03)
[2023-01-01] MEDS ORDERED: fentaNYL 50 mcg/mL 1 mL Vial ONE (07:03)
[2023-01-01] MEDS ORDERED: Verapamil 5 MG/2 ML VIAL ONE (07:42)
[2023-01-01] MEDS ORDERED: Iopamidol 370 76% 100 ML VIAL ONE (09:10)
== END 2023-01-01 12:20 | disposition home or self-care (01) ==
LOC: CCL 06:07
PROVIDERS: ATTEND Internal Medicine Cardiovascular Disease
PROC: 4A023N7 Measurement of Cardiac Sampling and Pressure, Left Heart, Percutaneous Approach (ICD-10-PCS; principal; 2023-01-01)
PROC: B200YZZ Plain Radiography of Single Coronary Artery using Other Contrast (ICD-10-PCS; 2023-01-01)
DX: I25.10 Atherosclerotic heart disease of native coronary artery without angina pectoris (principal); I10 Essential (primary) hypertension; R42 Dizziness and giddiness; E03.9 Hypothyroidism, unspecified; Z90.89 Acquired absence of other organs; Z90.710 Acquired absence of both cervix and uterus; Z79.899 Other long term (current) drug therapy; Z79.890 Hormone replacement therapy
CPT/HCPCS: 85025; 93005; 93458; C1769; C1894; J3010; 93010; 99152; J0153; J1644; J2001; J2250

== ENCOUNTER 2023-04-09 08:19 | Outpatient (CLI) | payer BC, MEDICARE ==
[2023-04-09 09:26] LABS: #Basophils 0.1 10x3/uL (0.0-0.2); #Eosinphils 0.1 10x3/uL (0.0-0.5); #Monocytes 0.4 10x3/uL (0.0-1.1); #Neutrophils 2.7 10x3/uL (1.5-8.4); %Eosinophils 2.2 % (0.0-6.0); %Lymphocytes 34.3 % (18.0-47.0); %Monocytes 8.7 % (0.0-10.0); %Neutrophils 53.6 % (40.0-75.0); Hematocrit 34.9 % (34.9-44.5); Mean Corpuscular HGB CONC 31.5 g/dL (32.0-36.0); Mean Corpuscular Hemoglobin 29.3 pg (27.0-33.0); Mean Corpuscular Volume 92.8 fl (81.6-98.3); Mean Platelet Volume 9.7 fl (7.4-10.4); Platelet Count 361 10x3/uL (150-450); RBC Distribution Width 12.9 % (11.5-14.5); Red Blood Cell (RBC) Count 3.76 10x6/uL (3.90-5.03)
[2023-04-09 09:38] LABS: INR-International Normal Ratio 0.9; Prothrombin Time 10.1 sec (9.5-12.1)
[2023-04-09 09:45] LABS: Anion Gap 13 mmol/L (10-20); BUN (Urea Nitrogen) 11 mg/dL (9.8-20.1); Calc. Creatinine Clearance 0 mL/min (70-130); Calcium 9.4 mg/dL (7.8-10.44); Carbon Dioxide 25 mmol/L (23-31); Chloride 105 mmol/L (98-107); Estimated GFR 83; Glucose 154 mg/dL (83-110); Potassium 3.9 mmol/L (3.5-5.1); Sodium 139 mmol/L (136-145)
== END 2023-04-09 08:20 | disposition home or self-care (01) ==
LOC: LABBT 08:19
PROVIDERS: ATTEND Orthopaedic Surgery
DX: Z01.818 Encounter for other preprocedural examination (principal); M17.12 Unilateral primary osteoarthritis, left knee
CPT/HCPCS: 80048; 85025; 85610; 87081; 93005; 93010

== ENCOUNTER 2023-04-12 06:41 | Observation (INO) | payer MEDICARE ==
[2023-04-09 08:45] VITALS: BMI 29.0
[2023-04-12] MEDS ORDERED: Sodium Chloride 0.9% 100 ML ONE ×2 (07:44→09:01)
[2023-04-12] MEDS ORDERED: Vancomycin (BATCH) 1.5 GM/300 ML BAG ONE (07:44)
[2023-04-12] MEDS ORDERED: Tranexamic Acid 1,000 MG/10 ML VIAL ONE (07:44)
[2023-04-12] MEDS ORDERED: fentaNYL 50 mcg/mL 1 mL Vial ONE (08:09)
[2023-04-12] MEDS ORDERED: Midazolam HCl 2 mg/2 ml Vial ONE ×2 (08:09→09:08)
[2023-04-12] MEDS ORDERED: Bupivacaine PF 0.5% 30 ML VIAL ONE ×2 (08:09→09:01)
[2023-04-12] MEDS ORDERED: Bupivacaine HCl 0.5%/Epinephrine 1:200,000/PF 30 ml Vial ONE (08:30)
[2023-04-12] MEDS ORDERED: fentaNYL 50 mcg/mL 1 mL Vial SLOW IVP PRN ×3 (08:53→09:25)
[2023-04-12] MEDS ORDERED: Acetaminophen 325 MG TAB PO PRN (08:53)
[2023-04-12] MEDS ORDERED: diphenhydrAMINE 25 MG CAP PO PRN (08:53)
[2023-04-12] MEDS ORDERED: Ondansetron PF 4 MG/2 ML Vial IVP PRN ×2 (08:53→09:30)
[2023-04-12] MEDS ORDERED: Promethazine HCl 25 MG/ML VIAL IM PRN ×2 (08:53→09:30)
[2023-04-12] MEDS ORDERED: Zolpidem Tartrate 5 MG TAB PO PRN ×2 (08:53→09:30)
[2023-04-12] MEDS ORDERED: HYDROcodone/Acetaminophen 10/325 mg Tablet PO PRN ×4 (08:53→09:30)
[2023-04-12] MEDS ORDERED: CEFAZOLIN 2 GM VIAL ONE (09:01)
[2023-04-12] MEDS ORDERED: Propofol 1,000 MG/100 ML VIAL IV ONE (09:08)
[2023-04-12] MEDS ORDERED: fentaNYL PF 100 MCG/2 ML SYRINGE ONE (09:08)
[2023-04-12] MEDS ORDERED: Ropivacaine 0.2% 550 ML 550 ML NERVE BLCK SCH (09:30)
[2023-04-12] MEDS ORDERED: traMADol HCl 50 MG TAB PO PRN ×2 (09:30)
[2023-04-12] MEDS ORDERED: PHENYLEPHRINE-NS 100 MCG/ML 10 ML SYRINGE ONE (09:51)
[2023-04-12] MEDS ORDERED: Ondansetron PF 4 MG/2 ML Vial ONE (10:10)
[2023-04-12] MEDS ORDERED: Dexamethasone 4 mg/ml Vial ONE (10:10)
[2023-04-12] MEDS ORDERED: Ketorolac Tromethamine 30 MG (1 mL) VIAL IVP SCH (14:00)
[2023-04-12] MEDS: Aspirin 81 mg Enteric Coated Tablet PO SCH ×2 (15:12→20:54)
[2023-04-12] MEDS: Losartan 25 MG TAB PO SCH (15:12)
[2023-04-12] MEDS: Ketorolac Tromethamine 30 MG (1 mL) VIAL IVP SCH ×2 (16:25→20:19)
[2023-04-12] MEDS: CEFAZOLIN 2 GM in Sodium Chloride 0.9% 100 ML IVPB SCH (16:26)
[2023-04-12] MEDS: Sodium Chloride 0.9% 1,000 ML IV SCH ×2 (20:19→21:00)
[2023-04-13] MEDS: CEFAZOLIN 2 GM in Sodium Chloride 0.9% 100 ML IVPB SCH (01:09)
[2023-04-13] MEDS: Ketorolac Tromethamine 30 MG (1 mL) VIAL IVP SCH ×2 (01:09→06:27)
[2023-04-13 04:11] LABS: Hematocrit 28.9 % (36.0-47.0); Hemoglobin 9.2 g/dL (12.0-16.0); Mean Corpuscular HGB CONC 31.8 g/dL (32.0-36.0); Mean Corpuscular Hemoglobin 30.1 pg (27.0-31.0); Mean Corpuscular Volume 94.4 fl (78.0-98.0); Mean Platelet Volume 10.1 fL (7.4-10.4); Platelet Count 309 10x3/uL (130-400); RBC Distribution Width 12.8 % (11.5-14.5); Red Blood Cell (RBC) Count 3.06 mill/uL (4.20-5.40); White Blood Cell (WBC) Count 11.2 10x3/uL (4.8-10.8)
[2023-04-13] MEDS ORDERED: Levothyroxine Sodium 112 MCG TAB PO SCH (06:00)
[2023-04-13] MEDS: Sodium Chloride 0.9% 1,000 ML IV SCH (06:32)
[2023-04-13] MEDS ORDERED: Ferrous Gluconate 324 MG TAB PO SCH (08:00)
[2023-04-13] MEDS: Losartan 25 MG TAB PO SCH (08:20)
[2023-04-13] MEDS: Aspirin 81 mg Enteric Coated Tablet PO SCH (08:21)
[2023-04-13] MEDS ORDERED: Multivitamin W/ Minerals 1 TAB PO SCH (09:00)
[2023-04-13] MEDS ORDERED: Senokot S 8.6-50 MG TAB PO SCH (09:00)
[2023-04-13 11:46] VITALS: BP 128/76; TEMP 97.5
== END 2023-04-13 14:08 | disposition home or self-care (01) ==
LOC: SDC 06:41 → SJJU 12:57 → INTOOBSV 12:57
PROVIDERS: ADMIT Orthopaedic Surgery; ATTEND Orthopaedic Surgery
PROC: 0SRD0JZ Replacement of Left Knee Joint with Synthetic Substitute, Open Approach (ICD-10-PCS; principal; 2023-04-12)
DX: M17.12 Unilateral primary osteoarthritis, left knee (principal); E03.9 Hypothyroidism, unspecified; Z90.89 Acquired absence of other organs; Z90.710 Acquired absence of both cervix and uterus; Z79.890 Hormone replacement therapy
CPT/HCPCS: 27447; 73560; 85027; 97110 ×2; 97116 ×2; 97530; A4306; C1776; J3010; J3370; 36415; J0665; J1100; J1885; J2250; J2405; J2704; J2795; J3490; J7050

== ENCOUNTER 2023-12-28 10:52 | Outpatient (CLI) | payer MEDICARE | END 2023-12-28 10:53 | disposition home or self-care (01) | LOC: BICMAMMO 10:52 | PROVIDERS: ATTEND Nurse Practitioner | DX: Z12.31 Encounter for screening mammogram for malignant neoplasm of breast (principal); Z85.828 Personal history of other malignant neoplasm of skin | CPT/HCPCS: 77063; 77067 ==